=== PATIENT | male | born 1990 | race African-American/Black ===

== ENCOUNTER 2016-12-13 16:22 | Emergency (ER) | payer MEDICAID ==
[~2016-12-13] VITALS: Ht 180.3 cm; Wt 60.8 kg
[~2016-12-13 16:22] MED LIST: BUPR75TA6 PO; IBUP800T PO; QUET100T PO; VENL150C6 PO; no meds per pt
[2016-12-13 16:23] VITALS: BP 125/75
[2016-12-13] MEDS ORDERED: HYDROcodone/APAP 5/325 TABLET PO ONE (17:00)
[2016-12-13] MEDS ORDERED: CLINDAMYCIN 150 MG/ML, 6ML IM ONE (17:00)
[2016-12-13 17:07] LABS: BLOOD UREA NITROGEN 9 mg/dL (7-18)
[2016-12-13] MEDS ORDERED: HYDROcodone/APAP 5/325 TABLET ONE (17:17)
== END 2016-12-13 17:58 ==
LOC: ED 17:52
DX: L03.116 Cellulitis of left lower limb (principal)
CPT/HCPCS: 36415; 80048; 82040; 85025; 96372

== ENCOUNTER 2019-03-11 07:24 | Emergency (ER) | payer MEDICAID, OTHER ==
[~2019-03-11 07:24] MED LIST changes: +IBUP-1223 PO; -IBUP800T PO
--- NOTE | 2019-03-11 07:28 | NUR ---
NIL X1 [id number]
[2019-03-11 07:33] VITALS: BP 148/79
--- NOTE | 2019-03-11 07:47 | NUR ---
FIRST CONTACT WITH PT. PT STATES "MY LEFT KNEE IT HURTS. IT STARTED HURTING LAST WEEK." PT DENIES ANY OTHER SX. PT'S AOX4. RESPS EVEN AND UNLABORED. PA AT BEDSIDE TO EVALUATE AT THIS TIME.
--- NOTE | 2019-03-11 08:25 | NUR ---
PT STATES "I'M COLD" WARM BLANCKET GIVEN AND BEAR MARLIN PLACED.
--- NOTE | 2019-03-11 08:34 | NUR ---
EMT APPLIED SPLINT AT THIS TIME. PT TOLERATED WELL.
--- NOTE | 2019-03-11 08:37 | NUR ---
PT STATES "I'M HUNGRY." PA OK'D TO GIVE SOME SNACKS. SNACKS/JUICE GIVEN.
--- NOTE | 2019-03-11 09:18 | NUR ---
Patient given discharge instructions and they have confirmed that they understand the instructions. Patient ambulatory with steady gait.
== END 2019-03-11 09:19 | disposition home or self-care (01) ==
LOC: ED 08:19
DX: S83.422A Sprain of lateral collateral ligament of left knee, initial encounter (principal); F32.9 Major depressive disorder, single episode, unspecified; X50.0XXA Overexertion from strenuous movement or load, initial encounter; Y93.89 Activity, other specified; Y92.69 Other specified industrial and construction area as the place of occurrence of the external cause; Y99.0 Civilian activity done for income or pay
CPT/HCPCS: 29505; 99283